=== PATIENT | female | born 1990 | race Caucasian/White ===

== ENCOUNTER 2021-03-20 16:20 | Emergency (ER) | payer OTHER ==
[~2021-03-20] VITALS: Ht 165.1 cm; Wt 58.5 kg
[2021-03-20] MEDS ORDERED: BUSPAR30 MG PO (16:45)
[2021-03-20] MEDS ORDERED: CELEXA 10 MG TA10 M1 PO (16:45)
[2021-03-20 17:19] LABS: URINE BILIRUBIN NEGATIVE (Negative); URINE BLOOD 2+ (Negative); URINE CLARITY CLEAR; URINE COLOR YELLOW; URINE GLUCOSE-RANDOM NEGATIVE (Negative); URINE KETONES NEGATIVE (Negative); URINE LEUKOCYTES-REFLEX NEGATIVE (Negative); URINE NITRITE-REFLEX NEGATIVE (Negative); URINE PROTEIN NEGATIVE (Negative); URINE SPECIFIC GRAVITY >= 1.030 (1.005-1.030)
[2021-03-20 17:34] LABS: MUCUS 0-3 Light strn/LPF (None Seen); SQUAMOUS >10 Many /LPF (0-3)
[2021-03-20 17:35] LABS: URINE RBC 3-10 Few /HPF (0-2)
[2021-03-20 17:36] LABS: CASTS None Seen /LPF (None Seen); CRYSTALS None Seen /LPF (None Seen); URINE WBC-REFLEX 0-5 Rare /HPF (0-5)
[2021-03-20 17:59] LABS: ABSOLUTE BASOPHILS 0.1 thou/uL (0.0-0.2); ABSOLUTE EOSINOPHILS 0.2 thou/uL (0.0-0.7); ABSOLUTE LYMPHOCYTES 2.2 thou/uL (0.8-5.3); ABSOLUTE MONOCYTES 0.4 thou/uL (0.0-1.2); ABSOLUTE NEUTROPHILS 6.1 thou/uL (1.6-8.1); EOSINOPHILS 2.3 %; LYMPHOCYTES 24.1 %; MCH 33.2 pg (26.0-34.0); MCHC 34.3 g/dL (28.0-37.0); MCV 96.8 fL (80.0-100.0); MONOCYTES 4.6 %; NUCLEATED RBCS 0 /100WBC; PLATELET COUNT* 324 thou/uL (150-400); RBC 3.92 mil/uL (4.20-5.00); RDW-CV 12.6 % (10.5-14.5)
[2021-03-20 18:15] LABS: CREATININE 0.7 mg/dL (0.6-1.3); POTASSIUM 3.7 mmol/L (3.5-5.1)
[2021-03-20 18:20] LABS: TOTAL BILIRUBIN 0.2 mg/dL (<0.1-1.0); TOTAL PROTEIN 8.3 g/dL (6.4-8.2)
[2021-03-20 19:36] VITALS: BP 120/68
== END 2021-03-20 19:36 | disposition home or self-care (01) ==
LOC: M.ERS 16:20
PROVIDERS: Physician Assistant
DX: O26.91 Pregnancy related conditions, unspecified, first trimester (principal); R10.30 Lower abdominal pain, unspecified; F32.9 Major depressive disorder, single episode, unspecified; F41.9 Anxiety disorder, unspecified; Z3A.01 Less than 8 weeks gestation of pregnancy; Z79.899 Other long term (current) drug therapy

== ENCOUNTER 2021-06-07 17:51 | Emergency (ER) | payer OTHER, MEDICAID ==
[~2021-06-07] VITALS: Ht 165.1 cm; Wt 58.1 kg
[~2021-06-07 17:51] MED LIST: BUSPAR30 MG PO; CELEXA 10 MG TA10 M1 PO
[2021-06-07 18:38] LABS: URINE BILIRUBIN NEGATIVE (Negative); URINE BLOOD 1+ (Negative); URINE COLOR YELLOW; URINE GLUCOSE-RANDOM NEGATIVE (Negative); URINE KETONES NEGATIVE (Negative); URINE LEUKOCYTES-REFLEX NEGATIVE (Negative); URINE PROTEIN NEGATIVE (Negative); URINE SPECIFIC GRAVITY 1.015 (1.005-1.030); URINE UROBILINOGEN 0.2 E.U./dl (0.2-1.0)
[2021-06-07 18:44] LABS: URINE CLARITY HAZY; URINE NITRITE-REFLEX POSITIVE (Negative)
[2021-06-07 18:56] LABS: SQUAMOUS 4-10 Moderate /LPF (0-3); URINE WBC-REFLEX >25 Many /HPF (0-5)
[2021-06-07 18:57] LABS: BACTERIA-REFLEX >30 Many /HPF (None Seen); CASTS None Seen /LPF (None Seen); CRYSTALS None Seen /LPF (None Seen); URINE RBC 3-10 Few /HPF (0-2)
[2021-06-07 19:02] LABS: ABSOLUTE BASOPHILS 0.1 thou/uL (0.0-0.2); ABSOLUTE EOSINOPHILS 0.2 thou/uL (0.0-0.7); ABSOLUTE LYMPHOCYTES 2.2 thou/uL (0.8-5.3); ABSOLUTE MONOCYTES 0.3 thou/uL (0.0-1.2); ABSOLUTE NEUTROPHILS 4.8 thou/uL (1.6-8.1); BASOPHILS 1.1 %; EOSINOPHILS 2.9 %; HEMATOCRIT 30.2 % (37.0-47.0); HEMOGLOBIN 10.5 gm/dL (12.0-15.0); LYMPHOCYTES 28.9 %; MCH 33.3 pg (26.0-34.0); MCHC 34.9 g/dL (28.0-37.0); MCV 95.3 fL (80.0-100.0); MONOCYTES 4.5 %; MPV 7.9 fl. (7.2-11.1); NUCLEATED RBCS 0 /100WBC; PLATELET COUNT* 290 thou/uL (150-400); POLYS 62.6 %; RBC 3.16 mil/uL (4.20-5.00); RDW-CV 12.8 % (10.5-14.5); WBC 7.6 thou/uL (4.0-11.0)
[2021-06-07 19:09] LABS: CALCIUM 8.2 mg/dL (8.5-10.1); CREATININE 0.4 mg/dL (0.6-1.3); POTASSIUM 3.3 mmol/L (3.5-5.1)
[2021-06-07 19:13] LABS: TOTAL BILIRUBIN 0.2 mg/dL (<0.1-1.0); TOTAL PROTEIN 6.9 g/dL (6.4-8.2)
[2021-06-07] MEDS ORDERED: KEFLEX250 MG PO (20:02)
[2021-06-07 20:30] VITALS: BP 103/50
== END 2021-06-07 20:30 | disposition home or self-care (01) ==
LOC: M.ERS 17:51
PROVIDERS: Emergency Medicine Emergency Medical Services
DX: O23.42 Unspecified infection of urinary tract in pregnancy, second trimester (principal); Z20.822 Contact with and (suspected) exposure to COVID-19; N39.0 Urinary tract infection, site not specified; O21.8 Other vomiting complicating pregnancy; R09.89 Other specified symptoms and signs involving the circulatory and respiratory systems; O99.342 Other mental disorders complicating pregnancy, second trimester; F32.9 Major depressive disorder, single episode, unspecified; F41.9 Anxiety disorder, unspecified; Z3A.18 18 weeks gestation of pregnancy; Z79.899 Other long term (current) drug therapy